=== PATIENT | male | born 1970 | race Caucasian/White ===

== ENCOUNTER → 2017-06-23 | Outpatient (CLI) | payer SELFPAY ==
[~2017-06-23] MED LIST: KEFLEX500 MG PO; LISINOPRIL10 M1 PO; LOPRESSOR25 MG PO; TOPROL XL25 MG PO; VICODIN ES 7501 TAB PO
== END | disposition home or self-care (01) ==
LOC: RESCLI 06-18 14:14
DX: I10 Essential (primary) hypertension (principal); I25.10 Atherosclerotic heart disease of native coronary artery without angina pectoris; Z72.0 Tobacco use

== ENCOUNTER 2017-09-21 01:57 | Emergency (ER) | payer SELFPAY ==
[~2017-09-21] VITALS: Ht 172.7 cm; Wt 74.8 kg
--- NOTE | ~2017-09-21 | EKG ---
[place], [place] ELECTROCARDIOGRAM REPORT NAME: KATHLEEN BAUER UNIT #: [id number] ROOM: DOCTOR: NORA ROSENTHAL,HEATHER BIRTHDATE: [birth year] DOS: 09/21/2017 TIME: 0159 hours. IMPRESSION: 1. Sinus rhythm. 2. Left anterior fascicular block. 3. Lateral ST-T wave changes. 4. Anteroseptal ST elevation, consider acute injury. 5. Normal QT interval. HEATHER MELENDEZ MD CM:EKGRPT:ELECTROCARDIOGRAM REPORT [id number] HEATHER MELENDEZ MD
[2017-09-21 02:33] LABS: BASO % 0.5 % (0.0-1.0); EOS # 0.4 10*3/uL (0.0-0.4); EOS % 5.5 % (1.0-4.0); HEMATOCRIT 42.3 % (42.0-52.0); HEMOGLOBIN 14.5 g/dl (14.0-18.0); LYMPH # 3.5 10*3/uL (1.3-4.4); LYMPH % 54.8 % (27.0-41.0); MEAN CELL VOLUME 92.8 fl (80.0-94.0); MEAN CORPUSCULAR HGB 31.8 pg (27.0-31.0); MEAN CORPUSCULAR HGB CONC 34.3 g/dl (33.0-37.0); MEAN PLATELET VOLUME 9.5 fl (9.6-12.3); MONO # 0.6 10*3/uL (0.1-1.0); MONO % 9.6 % (3.0-9.0); NEUT # 1.9 10*3/uL (2.3-7.9); NEUT % 29.4 % (47.0-73.0); PLATELET COUNT AUTOMATED 190 10*3/uL (130-400); RED BLOOD COUNT 4.56 10*6/uL (4.50-5.90); RED CELL DISTRI WIDTH 14.4 % (0-14.5); WHITE BLOOD COUNT 6.3 10*3/uL (4.8-10.8)
[2017-09-21 02:43] LABS: INTERNATIONAL NORM RATIO 0.9 (2.0-3.5)
[2017-09-21 02:54] LABS: ALBUMIN 3.7 gm/dl (3.1-4.5); ALKALINE PHOSPHATASE 144 U/L (45-117); BUN 7 mg/dl (7-24); CHLORIDE 92 mmol/L (98-107); CREATININE 0.74 mg/dL (0.70-1.30); LIPASE 224 U/L (73-393); POTASSIUM 3.7 mmol/L (3.5-5.1); SGOT/AST 61 IU/L (3-35); SGPT/ALT 75 U/L (12-78); SODIUM 130 mmol/L (136-145); TOTAL PROTEIN 8.4 gm/dL (6.4-8.2)
[2017-09-21 02:56] LABS: TROPONIN I < 0.015 ng/ml (<0.045)
[2017-09-21] MEDS ORDERED: LISINOPRIL20 MG PO (03:05)
== END 2017-09-21 04:12 | disposition short-term general hospital (02) ==
LOC: ED 01:57
PROVIDERS: Nurse Practitioner Family
DX: I21.09 ST elevation (STEMI) myocardial infarction involving other coronary artery of anterior wall (principal); I10 Essential (primary) hypertension; Z98.890 Other specified postprocedural states; Z79.899 Other long term (current) drug therapy; Z91.041 Radiographic dye allergy status

== ENCOUNTER → 2017-11-18 | Outpatient (CLI) | payer MEDICAID ==
[~2017-11-18] MED LIST changes: +LISINOPRIL20 MG PO
== END | disposition home or self-care (01) ==
LOC: RESCLI 04:18
DX: I25.810 Atherosclerosis of coronary artery bypass graft(s) without angina pectoris (principal); I10 Essential (primary) hypertension

== ENCOUNTER 2018-04-09 12:00 | Emergency (ER) | payer MEDICAID ==
[~2018-04-09] VITALS: Ht 154.9 cm; Wt 77.1 kg
[2018-04-09] MEDS ORDERED: PREDNISONE50 MG PO (13:54)
[2018-04-09] MEDS ORDERED: ZYRTEC10 M3 PO (13:54)
== END 2018-04-09 15:10 | disposition home or self-care (01) ==
LOC: ED 12:00
DX: T78.49XA Other allergy, initial encounter (principal); L25.9 Unspecified contact dermatitis, unspecified cause; F17.200 Nicotine dependence, unspecified, uncomplicated; Z91.041 Radiographic dye allergy status; X58.XXXA Exposure to other specified factors, initial encounter

== ENCOUNTER → 2018-10-15 | Outpatient (CLI) | payer MEDICAID ==
[~2018-10-15] MED LIST changes: +PREDNISONE50 MG PO; +ZYRTEC10 M3 PO
== END ==
LOC: RESCLI 08:33
DX: I10 Essential (primary) hypertension (principal); I25.810 Atherosclerosis of coronary artery bypass graft(s) without angina pectoris; E78.5 Hyperlipidemia, unspecified; F17.210 Nicotine dependence, cigarettes, uncomplicated; Z71.6 Tobacco abuse counseling; Z88.8 Allergy status to other drugs, medicaments and biological substances; Z79.899 Other long term (current) drug therapy

== ENCOUNTER → 2018-10-26 | Outpatient (CLI) | payer MEDICAID ==
[2018-10-26 09:41] LABS: BASO % 0.9 % (0.0-1.0); EOS # 0.1 10*3/uL (0.0-0.4); EOS % 1.9 % (1.0-4.0); HEMATOCRIT 37.6 % (42.0-52.0); HEMOGLOBIN 12.3 g/dl (14.0-18.0); LYMPH # 2.3 10*3/uL (1.3-4.4); LYMPH % 50.1 % (27.0-41.0); MEAN CORPUSCULAR HGB 35.3 pg (27.0-31.0); MEAN CORPUSCULAR HGB CONC 32.7 g/dl (33.0-37.0); MEAN PLATELET VOLUME 9.6 fl (9.6-12.3); MONO # 0.4 10*3/uL (0.1-1.0); MONO % 7.5 % (3.0-9.0); NEUT # 1.8 10*3/uL (2.3-7.9); NEUT % 39.4 % (47.0-73.0); PLATELET COUNT AUTOMATED 103 10*3/uL (130-400); RED BLOOD COUNT 3.48 10*6/uL (4.50-5.90); RED CELL DISTRI WIDTH 15.4 % (0-14.5); WHITE BLOOD COUNT 4.7 10*3/uL (4.8-10.8)
[2018-10-26 10:18] LABS: BUN 10 mg/dl (7-24); CHLORIDE 104 mmol/L (98-107); CHOLESTEROL 122 mg/dL (<200); CREATININE 0.85 mg/dL (0.70-1.30); HDL CHOLESTEROL 22 mg/dl (40-60); LDL CHOLESTEROL 64 mg/dL (9-159); POTASSIUM 3.9 mmol/L (3.5-5.1); SODIUM 136 mmol/L (136-145); TRIGLYCERIDES 181 mg/dl (<150); VLDL CHOLESTEROL 36 mg/dL (6-40)
[2018-10-26 12:16] LABS: VITAMIN D, 25-HYDROXY 13.7 ng/mL (30-100)
== END | disposition home or self-care (01) ==
LOC: LAB 09:20
PROVIDERS: Internal Medicine
DX: E78.5 Hyperlipidemia, unspecified (principal)

== ENCOUNTER → 2018-11-20 | Outpatient (CLI) | payer MEDICAID | END | disposition home or self-care (01) | LOC: RESCLI 03:39 | DX: I25.810 Atherosclerosis of coronary artery bypass graft(s) without angina pectoris (principal); I10 Essential (primary) hypertension; E78.5 Hyperlipidemia, unspecified; F10.20 Alcohol dependence, uncomplicated; D61.818 Other pancytopenia; R74.0 Nonspecific elevation of levels of transaminase and lactic acid dehydrogenase [LDH]; Z72.0 Tobacco use; Z71.6 Tobacco abuse counseling ==

== ENCOUNTER → 2019-06-28 | Outpatient (CLI) | payer MEDICAID ==
[2019-06-28 12:14] LABS: BASO % 0.5 % (0.0-1.0); EOS # 0.1 10*3/uL (0.0-0.4); EOS % 1.6 % (1.0-4.0); HEMATOCRIT 43.6 % (42.0-52.0); HEMOGLOBIN 14.6 g/dl (14.0-18.0); LYMPH # 2.1 10*3/uL (1.3-4.4); LYMPH % 36.7 % (27.0-41.0); MEAN CELL VOLUME 101.2 fl (80.0-94.0); MEAN CORPUSCULAR HGB 33.9 pg (27.0-31.0); MEAN CORPUSCULAR HGB CONC 33.5 g/dl (33.0-37.0); MEAN PLATELET VOLUME 9.2 fl (9.6-12.3); MONO # 0.7 10*3/uL (0.1-1.0); MONO % 12.5 % (3.0-9.0); NEUT # 2.7 10*3/uL (2.3-7.9); NEUT % 48.3 % (47.0-73.0); PLATELET COUNT AUTOMATED 164 10*3/uL (130-400); RED BLOOD COUNT 4.31 10*6/uL (4.50-5.90); RED CELL DISTRI WIDTH 13.7 % (0-14.5); WHITE BLOOD COUNT 5.6 10*3/uL (4.8-10.8)
[2019-06-28 12:36] LABS: BUN 8 mg/dl (7-24); CHLORIDE 97 mmol/L (98-107); CREATININE 0.89 mg/dL (0.70-1.30); SODIUM 129 mmol/L (136-145)
[2019-06-29 07:08] LABS: HEPATITIS B SURFACE AG Negative (Negative); HEPATITIS C VIRUS ANTIBODY 0.1 s/co (0.0-0.9)
== END | disposition home or self-care (01) ==
LOC: LAB 11:47
PROVIDERS: Internal Medicine
DX: D61.818 Other pancytopenia (principal)

== ENCOUNTER → 2019-07-02 | Outpatient (CLI) | payer MEDICAID | END | disposition home or self-care (01) | LOC: RESCLI 00:19 | DX: J30.2 Other seasonal allergic rhinitis (principal); I10 Essential (primary) hypertension; I25.10 Atherosclerotic heart disease of native coronary artery without angina pectoris; E78.5 Hyperlipidemia, unspecified; Z79.899 Other long term (current) drug therapy; Z88.8 Allergy status to other drugs, medicaments and biological substances ==

== ENCOUNTER → 2020-02-29 | Outpatient (CLI) | payer MEDICAID | END | disposition home or self-care (01) | LOC: RESCLI 00:51 | DX: J30.2 Other seasonal allergic rhinitis (principal); I25.10 Atherosclerotic heart disease of native coronary artery without angina pectoris; I10 Essential (primary) hypertension; E78.5 Hyperlipidemia, unspecified; I25.2 Old myocardial infarction; F17.200 Nicotine dependence, unspecified, uncomplicated; Z79.899 Other long term (current) drug therapy; Z79.82 Long term (current) use of aspirin; Z95.828 Presence of other vascular implants and grafts; Z95.1 Presence of aortocoronary bypass graft ==

== ENCOUNTER → 2020-05-09 | Outpatient (CLI) | payer MEDICAID | END | disposition home or self-care (01) | LOC: RESCLI 00:44 | PROVIDERS: ATTEND Internal Medicine | DX: M25.561 Pain in right knee (principal); M25.562 Pain in left knee; I10 Essential (primary) hypertension; J30.2 Other seasonal allergic rhinitis; I25.2 Old myocardial infarction; I25.10 Atherosclerotic heart disease of native coronary artery without angina pectoris; F17.200 Nicotine dependence, unspecified, uncomplicated; E78.5 Hyperlipidemia, unspecified; Z79.899 Other long term (current) drug therapy; Z95.1 Presence of aortocoronary bypass graft; Z95.818 Presence of other cardiac implants and grafts ==

== ENCOUNTER → 2024-10-28 | Outpatient (CLI) | payer MEDICARE | END | disposition home or self-care (01) | LOC: RESCLI 08:30 | PROVIDERS: ATTEND Internal Medicine | DX: I25.10 Atherosclerotic heart disease of native coronary artery without angina pectoris (principal); E78.5 Hyperlipidemia, unspecified; J30.2 Other seasonal allergic rhinitis; I10 Essential (primary) hypertension; E55.9 Vitamin D deficiency, unspecified; Z12.11 Encounter for screening for malignant neoplasm of colon; Z71.6 Tobacco abuse counseling; Z79.899 Other long term (current) drug therapy; Z98.890 Other specified postprocedural states ==

== ENCOUNTER → 2024-10-29 | Outpatient (CLI) | payer MEDICARE ==
[2024-10-29 08:59] LABS: BASO % 1.1 % (0.0-1.0); EOS # 0.1 10*3/uL (0.0-0.4); EOS % 2.1 % (1.0-4.0); HEMATOCRIT 41.8 % (42.0-52.0); MEAN CELL VOLUME 99.5 fl (80.0-94.0); MEAN CORPUSCULAR HGB 33.6 pg (27.0-31.0); MEAN CORPUSCULAR HGB CONC 33.7 g/dl (33.0-37.0); MEAN PLATELET VOLUME 9.3 fl (9.6-12.3); MONO # 0.6 10*3/uL (0.1-1.0); MONO % 15.6 % (3.0-9.0); NEUT # 1.6 10*3/uL (2.3-7.9); NEUT % 41.8 % (47.0-73.0); PLATELET COUNT AUTOMATED 210 10*3/uL (130-400); RED CELL DISTRI WIDTH 13.9 % (0-14.5); WHITE BLOOD COUNT 3.8 10*3/uL (4.8-10.8)
[2024-10-29 09:28] LABS: ALKALINE PHOSPHATASE 122 U/L (46-116); BUN 7 mg/dl (9-23); CHLORIDE 96 mmol/L (98-107); CHOLESTEROL 102 mg/dL (<200); LDL CHOLESTEROL 35 mg/dL (9-159); POTASSIUM 5.1 mmol/L (3.4-5.1); SGPT/ALT 84 U/L (5-49); TOTAL PROTEIN 7.6 gm/dL (6.0-8.0); TRIGLYCERIDES 152 mg/dl (<150)
== END | disposition home or self-care (01) ==
LOC: LAB 08:42
PROVIDERS: Student in an Organized Health Care Education/Training Program; ATTEND Internal Medicine
DX: L03.012 Cellulitis of left finger (principal); I10 Essential (primary) hypertension; I25.10 Atherosclerotic heart disease of native coronary artery without angina pectoris; E78.5 Hyperlipidemia, unspecified; E55.9 Vitamin D deficiency, unspecified; M79.89 Other specified soft tissue disorders

== ENCOUNTER 2024-11-16 09:20 | Emergency (ER) | payer OTHER ==
[~2024-11-16] VITALS: Ht 180.3 cm; Wt 771.1 kg
[2024-11-16] MEDS ORDERED: ATORVASTATIN CA20 M1 PO (09:41)
[2024-11-16] MEDS ORDERED: ZESTRIL20 MG PO (09:41)
[2024-11-16] MEDS ORDERED: VAZALORE81 MG PO (09:42)
[2024-11-16] MEDS ORDERED: BACITRACIN3.5 GM T (10:44)
== END 2024-11-16 10:31 | disposition home or self-care (01) ==
LOC: ED 09:20
DX: S61.211D Laceration without foreign body of left index finger without damage to nail, subsequent encounter (principal); Z91.041 Radiographic dye allergy status; Z98.890 Other specified postprocedural states; X58.XXXD Exposure to other specified factors, subsequent encounter

== ENCOUNTER → 2024-11-18 | Outpatient (CLI) | payer OTHER ==
[~2024-11-18] MED LIST changes: +ATORVASTATIN CA20 M1 PO; +BACITRACIN3.5 GM T; +VAZALORE81 MG PO; +ZESTRIL20 MG PO
== END | disposition home or self-care (01) ==
LOC: WOUNDCARE 11-17 14:31
PROVIDERS: ATTEND Nurse Practitioner Family
DX: S61.211A Laceration without foreign body of left index finger without damage to nail, initial encounter (principal); L98.491 Non-pressure chronic ulcer of skin of other sites limited to breakdown of skin; L03.90 Cellulitis, unspecified; I73.9 Peripheral vascular disease, unspecified; R22.32 Localized swelling, mass and lump, left upper limb; I10 Essential (primary) hypertension; E78.00 Pure hypercholesterolemia, unspecified; F17.210 Nicotine dependence, cigarettes, uncomplicated; Z98.890 Other specified postprocedural states; Z79.899 Other long term (current) drug therapy; X58.XXXA Exposure to other specified factors, initial encounter; Y93.89 Activity, other specified; Y92.89 Other specified places as the place of occurrence of the external cause; Y99.8 Other external cause status

== ENCOUNTER → 2024-11-25 | Outpatient (CLI) | payer OTHER | END | disposition home or self-care (01) | LOC: WOUNDCARE 01:46 | PROVIDERS: ATTEND Nurse Practitioner Family | DX: S61.211D Laceration without foreign body of left index finger without damage to nail, subsequent encounter (principal); L98.491 Non-pressure chronic ulcer of skin of other sites limited to breakdown of skin; L03.90 Cellulitis, unspecified; I73.9 Peripheral vascular disease, unspecified; I10 Essential (primary) hypertension; E78.00 Pure hypercholesterolemia, unspecified; R22.32 Localized swelling, mass and lump, left upper limb; F17.210 Nicotine dependence, cigarettes, uncomplicated; Z98.890 Other specified postprocedural states; Z79.82 Long term (current) use of aspirin; Z79.899 Other long term (current) drug therapy ==

== ENCOUNTER → 2024-12-07 | Outpatient (CLI) | payer OTHER | END | disposition home or self-care (01) | LOC: WOUNDCARE 03:41 | PROVIDERS: ATTEND Nurse Practitioner Family | DX: S61.211D Laceration without foreign body of left index finger without damage to nail, subsequent encounter (principal); L98.491 Non-pressure chronic ulcer of skin of other sites limited to breakdown of skin; L03.90 Cellulitis, unspecified; I10 Essential (primary) hypertension; I73.9 Peripheral vascular disease, unspecified; R22.32 Localized swelling, mass and lump, left upper limb; F17.210 Nicotine dependence, cigarettes, uncomplicated; Z98.890 Other specified postprocedural states; Z79.82 Long term (current) use of aspirin; Z79.899 Other long term (current) drug therapy; X58.XXXD Exposure to other specified factors, subsequent encounter ==

== ENCOUNTER 2024-12-28 08:34 | Emergency (ER) | payer OTHER ==
[~2024-12-28] VITALS: Ht 180.3 cm; Wt 76.2 kg
[2024-12-28] MEDS ORDERED: SIMETHICONE 80 MG TAB PO ONE (09:25)
[2024-12-28 09:36] LABS: BASO % 0.4 % (0.0-1.0); EOS # 0.1 10*3/uL (0.0-0.4); EOS % 2.1 % (1.0-4.0); MEAN CELL VOLUME 98.3 fl (80.0-94.0); MEAN CORPUSCULAR HGB 33.7 pg (27.0-31.0); MEAN CORPUSCULAR HGB CONC 34.3 g/dl (33.0-37.0); MEAN PLATELET VOLUME 9.3 fl (9.6-12.3); MONO # 0.7 10*3/uL (0.1-1.0); MONO % 14.1 % (3.0-9.0); NEUT # 2.5 10*3/uL (2.3-7.9); PLATELET COUNT AUTOMATED 151 10*3/uL (130-400); RED BLOOD COUNT 3.56 10*6/uL (4.50-5.90); RED CELL DISTRI WIDTH 12.8 % (0-14.5); WHITE BLOOD COUNT 4.8 10*3/uL (4.8-10.8)
[2024-12-28 10:06] LABS: ALKALINE PHOSPHATASE 112 U/L (46-116); BUN 11 mg/dl (9-23); CHLORIDE 103 mmol/L (98-107); LIPASE 363 U/L (12-53); POTASSIUM 5.2 mmol/L (3.4-5.1); SGPT/ALT 71 U/L (5-49); TOTAL PROTEIN 6.9 gm/dL (6.0-8.0)
[2024-12-28 10:30] LABS: BILIRUBIN Negative (Negative); BLOOD Negative (Negative); CLARITY Clear (Clear); COLOR Yellow (Yellow); GLUCOSE Negative (Negative); KETONE Negative (Negative); LEUKO ESTERASE Negative (Negative); NITRITE Negative (Negative); UROBILINOGEN 0.2 E.U./dl (0.0-1.0)
[2024-12-28 10:45] LABS: RBC 0-2 rbc/hpf (0-2); WBC 0-2 wbc/hpf (0-5)
== END 2024-12-28 11:02 | disposition home or self-care (01) ==
LOC: ED 08:34
PROVIDERS: Internal Medicine
DX: R10.84 Generalized abdominal pain (principal); Z79.82 Long term (current) use of aspirin; Z79.899 Other long term (current) drug therapy; Z98.890 Other specified postprocedural states

== ENCOUNTER 2024-12-29 13:14 | Emergency (ER) | payer OTHER ==
[~2024-12-29] VITALS: Wt 76.2 kg
[2024-12-29 14:23] LABS: BASO % 0.2 % (0.0-1.0); EOS # 0.1 10*3/uL (0.0-0.4); EOS % 2.2 % (1.0-4.0); HEMATOCRIT 34.4 % (42.0-52.0); MEAN CORPUSCULAR HGB 33.3 pg (27.0-31.0); MEAN PLATELET VOLUME 9.6 fl (9.6-12.3); MONO # 0.6 10*3/uL (0.1-1.0); MONO % 12.3 % (3.0-9.0); NEUT # 2.6 10*3/uL (2.3-7.9); NEUT % 51.8 % (47.0-73.0); PLATELET COUNT AUTOMATED 138 10*3/uL (130-400); RED BLOOD COUNT 3.51 10*6/uL (4.50-5.90); RED CELL DISTRI WIDTH 12.9 % (0-14.5)
[2024-12-29 14:31] LABS: BILIRUBIN Negative (Negative); BLOOD Negative (Negative); COLOR Yellow (Yellow); GLUCOSE Negative (Negative); KETONE Negative (Negative); LEUKO ESTERASE Negative (Negative); NITRITE Negative (Negative); UROBILINOGEN 0.2 E.U./dl (0.0-1.0)
[2024-12-29 14:42] LABS: ALKALINE PHOSPHATASE 101 U/L (46-116); BUN 10 mg/dl (9-23); CHLORIDE 100 mmol/L (98-107); LIPASE 271 U/L (12-53); POTASSIUM 4.4 mmol/L (3.4-5.1); SGPT/ALT 66 U/L (5-49)
[2024-12-29 14:55] LABS: CLARITY Clear (Clear)
== END 2024-12-29 15:24 | disposition home or self-care (01) ==
LOC: ED 13:14
PROVIDERS: Internal Medicine
DX: R10.84 Generalized abdominal pain (principal); Z79.82 Long term (current) use of aspirin; Z79.899 Other long term (current) drug therapy; Z91.041 Radiographic dye allergy status; Z98.890 Other specified postprocedural states

== ENCOUNTER → 2025-02-21 | Outpatient (CLI) | payer OTHER ==
[~2025-02-21] MED LIST changes: +GADOTERATE MEGLUMINE 7.5 MMOL/15 ML VIAL IV ONE; +SODIUM CHLORIDE 0.9% 50 ML IV ONE
== END | disposition home or self-care (01) ==
LOC: MRI 12:44
PROVIDERS: ATTEND Internal Medicine
DX: K86.89 Other specified diseases of pancreas (principal); K66.9 Disorder of peritoneum, unspecified

== ENCOUNTER → 2025-05-11 | Outpatient (CLI) | payer OTHER ==
[~2025-05-11] MED LIST changes: -GADOTERATE MEGLUMINE 7.5 MMOL/15 ML VIAL IV ONE; -SODIUM CHLORIDE 0.9% 50 ML IV ONE
[2025-05-11 16:06] LABS: BASO # 0.0 10*3/uL (0.0-0.1); BASO % 0.8 % (0.0-1.0); EOS # 0.2 10*3/uL (0.0-0.4); EOS % 2.9 % (1.0-4.0); MEAN CELL VOLUME 98.5 fl (80.0-94.0); MEAN CORPUSCULAR HGB 33.7 pg (27.0-31.0); MEAN PLATELET VOLUME 9.2 fl (9.6-12.3); MONO # 0.7 10*3/uL (0.1-1.0); MONO % 12.9 % (3.0-9.0); NEUT # 2.2 10*3/uL (2.3-7.9); NEUT % 42.1 % (47.0-73.0); NUCLEATED RED BLOOD CELL 0.0 % (0.0-0.0); NUCLEATED RED BLOOD CELL 0.0 10*3/uL (0.0-0.0); PLATELET COUNT AUTOMATED 217 10*3/uL (130-400); RED CELL DISTRI WIDTH 13.3 % (0-14.5)
[2025-05-11 16:27] LABS: BUN 7 mg/dl (9-23); SGPT/ALT 35 U/L (5-49)
== END ==
LOC: LAB 00:45 → RESCLI 00:45
PROVIDERS: Student in an Organized Health Care Education/Training Program; ATTEND Internal Medicine
DX: K86.9 Disease of pancreas, unspecified (principal)